=== PATIENT | female | born 1990 | race Caucasian/White ===

== ENCOUNTER 2016-11-24 23:52 | Emergency (ER) | payer MEDICAID ==
[~2016-11-24] VITALS: Ht 157.5 cm; Wt 86.4 kg
[2016-11-25] MEDS ORDERED: DiphenhydrAMINE HCL 25 MG CAPSULE PO ONE (01:00)
[2016-11-25] MEDS ORDERED: PredniSONE 5 MG/5 ML SOLUTION UDCUP PO ONE (01:15)
[2016-11-25] MEDS ORDERED: PredniSONE 20 MG TABLET PO ONE (01:30)
[2016-11-25] MEDS ORDERED: DiphenhydrAMINE HCL 25 MG/10 ML ELIXIR UDCUP PO ONE (01:30)
[2016-11-25 02:08] VITALS: BP 116/68
== END 2016-11-25 02:11 | disposition home or self-care (01) ==
LOC: EMS 23:54
DX: L50.9 Urticaria, unspecified (principal)
CPT/HCPCS: 99283; J7512 ×2